=== PATIENT | female | born 1980 | race Caucasian/White ===

== ENCOUNTER 2017-03-30 05:33 | Outpatient (CLI) | payer OTHER ==
[~2017-03-30] VITALS: Ht 152.4 cm; Wt 63.5 kg
[~2017-03-30 05:33] MED LIST: ACHYD1T PO; BUTA1CAP45 PO; CPR500T PO; DCS100C PO; HYDR-1231 PO; HYDR-34 PO; HYDR1CAP2 PO; IBP800T PO; MECL-133; NAPR-243 PO; PREN1TAB64
[2017-03-30 09:14] VITALS: BP 126/70
== END 2017-03-30 09:20 | disposition home or self-care (01) ==
LOC: PREOP 05:33
PROVIDERS: ATTEND Orthopaedic Surgery
DX: Z01.818 Encounter for other preprocedural examination (principal); M94.261 Chondromalacia, right knee
CPT/HCPCS: 87081

== ENCOUNTER 2017-04-06 06:00 | Day surgery (SDC) | payer OTHER ==
--- NOTE | 2017-03-28 17:34 | HISTORY AND PHYSICAL ---
DATE OF SERVICE: 04/06/2017 This is for outpatient surgery on 04/06/17 for right knee arthroscopy. HISTORY: The patient is a 36-year-old female who previously underwent right ACL reconstruction with also known chondromalacia, who presents with complaints of increasing right knee pain. She reports catching and locking in her knee. She reports pain with stairs, with squatting and kneeling. She reports this has been progressive in nature and is interfering with her activities of daily living. She has tried, rest, activity modifications without relief. Due to functional impairment, the patient has elected to proceed with surgical intervention. REVIEW OF SYSTEMS: No chest pain, no shortness of breath, no dysuria. PAST MEDICAL HISTORY: Tension headache. PAST SURGICAL HISTORY: Appendectomy, cholecystectomy, hysterectomy. FAMILY HISTORY: Significant for cardiovascular disease, heart disease, hypertension. PRIMARY CARE PROVIDER: Dr. Garcia. MEDICATIONS: Denies. ALLERGIES: COMPAZINE. SOCIAL HISTORY: The patient denies alcohol or tobacco use. RADIOGRAPHS: Reveal no acute changes status post ACL reconstruction. PHYSICAL EXAMINATION: The patient is well-developed, well-nourished, in no acute distress. HEENT: Normocephalic, atraumatic. Pupils equal, round, and reactive to light. Oropharynx is clear. NECK: Supple. No lymphadenopathy. LUNGS: Clear to auscultation bilaterally. HEART: Regular rate and rhythm. ABDOMEN: Soft, nontender, nondistended. EXTREMITIES: The right knee demonstrates patellofemoral crepitus and pain with patellar loading. She has a moderate effusion. Range of motion is 0/0/135 with a negative Baldo, negative anterior drawer, negative pivot shift. The patient ambulates with an antalgic gait. IMPRESSION: Right knee chondromalacia of the patella, symptomatic. PLAN: Right knee arthroscopy with chondroplasty. The risks, benefits, options, ramifications and recovery were discussed at length with the patient. She understands and wishes to proceed. Job ID: [id number] DocumentID: [id number] Dictated Date: 03/28/2017 16:35:06 Med Spa Manager Date: 03/28/2017 17:34:05 Dictated By: RONALD LONG MD
[~2017-04-06] VITALS: Ht 152.4 cm; Wt 63.5 kg
[2017-04-06] MEDS ORDERED: ceFAZolin 1,000 MG (ANCEF) VIAL ONE (06:21)
[2017-04-06] MEDS ORDERED: NS (IVPB) 50 ML ONE (06:21)
[2017-04-06 06:30] VITALS: BP 118/77
[2017-04-06] MEDS: LACTATED RINGERS 1,000 ML IV PRN ×2 (06:40→08:04)
[2017-04-06] MEDS ORDERED: MIDAZOLAM 2 MG/2 ML (VERSED) VIAL ONE (06:57)
[2017-04-06] MEDS ORDERED: BUPIVACAINE 0.25% 30 ML (SENSORCAINE) VIAL ONE (07:12)
[2017-04-06] MEDS ORDERED: morphine PF (DURAMORPH) 10 MG/10 ML AMP ONE (07:12)
--- NOTE | 2017-04-06 07:18 | Progress Note-Pre Operative ---
Pre-Operative Progress Note H&P Reviewed The H&P was reviewed, patient examined and no changes noted. Date Seen by Provider: Apr 06, 2017 Time Seen by Provider: 07:11 Date H&P Reviewed: Apr 06, 2017 Time H&P Reviewed: 07:11 Pre-Operative Diagnosis: right knee chondromalacia RONALD LONG MD Apr 06, 2017 07:18
--- NOTE | 2017-04-06 07:19 | Progress Note-Post Operative ---
Post-Operative Progess Note Surgeon (s)/Wildlife Conservationist (s) Surgeon RONALD LONG MD Wildlife Conservationist: Star Bennett Pre-Operative Diagnosis right knee chondromalacia Post-Operative Diagnosis right knee chondromalacia of the patella, trochlea, medial femoral condyle, lateral tibial plateau Procedure & Operative Findings Date of Procedure 04/06/17 Procedure Performed/Findings right knee arthroscopic chondroplasty of the patella, trochlea, medial femoral condyle, and lateral tibial plateau Anesthesia Type GETA Estimated Blood Loss Estimated blood loss (mL): minimal Specimens/Packing Specimens Removed none Packing: none RONALD LONG MD Apr 06, 2017 07:19
[2017-04-06] MEDS ORDERED: ceFAZolin 1 GM/NS 50 ML IVPB IV ONE ×2 (07:30)
[2017-04-06] MEDS ORDERED: HYDROcodone/APAP 7.5 MG/325 MG (LORTAB, LORCET PLUS) TABLET PO PRN (07:30)
[2017-04-06] MEDS ORDERED: LACTATED RINGERS 1,000 ML IV ONE (07:54)
[2017-04-06] MEDS ORDERED: proPOfol 200 MG/20 ML (DIPRIVAN) VIAL IV ONE (07:54)
[2017-04-06] MEDS ORDERED: SEVOFLURANE (ULTANE) 15 ML INHAL SOLN ONE ×2 (07:54→07:55)
[2017-04-06] MEDS ORDERED: ONDANSETRON 4 MG/2 ML (SDV) Z0FRAN ONE ×2 (07:54→08:14)
[2017-04-06] MEDS ORDERED: LIDOCAINE PF 2% 5 ML (XYLOCAINE) VIAL ONE (07:54)
[2017-04-06] MEDS ORDERED: DEXAMETHASONE 10 MG/ML (DECADRON) 1 ML VIAL ONE (07:57)
[2017-04-06] MEDS ORDERED: morphine INJ 10 MG/ML 1ML (SYR OR VIAL) ONE (08:14)
[2017-04-06] MEDS: morphine INJ 10 MG/ML 1ML (SYR OR VIAL) IVP PRN ×2 (08:25→08:32)
[2017-04-06] MEDS ORDERED: ONDANSETRON 4 MG/2 ML (SDV) Z0FRAN IVP PRN (08:30)
[2017-04-06] MEDS ORDERED: PROMETHAZINE INJ 25 MG/ML (PHENERGAN) AMP IVP PRN (08:30)
--- NOTE | 2017-04-06 08:42 | OPERATIVE REPORT ---
DATE OF SERVICE: 04/06/2017 PREOPERATIVE DIAGNOSES: 1. Right knee chondromalacia of the patella. 2. 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 3. Right knee chondromalacia of the medial femoral condyle. POSTOPERATIVE DIAGNOSES: 1. Right knee chondromalacia of the patella. 2. 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 3. Right knee chondromalacia of the medial femoral condyle. 4. Right knee chondromalacia of the trochlea. PROCEDURES: 1. Right knee arthroscopic chondroplasty of the patella. 2. Right knee arthroscopic chondroplasty of the trochlea. 3. Right knee arthroscopic chondroplasty of the medial femoral condyle. 4. Right knee arthroscopic chondroplasty of the lateral tibial plateau. SURGEON: RONALD LONG MD MEN'S DESIGNER: PREM GUY, who assisted throughout the procedure and closed the incisions. ANESTHESIA: General endotracheal by Pura Siegel CRNA. TOURNIQUET TIME: Not applicable. ESTIMATED BLOOD LOSS: Minimal. DRAINS: None. COMPLICATIONS: None. POSTOPERATIVE PLAN: Routine arthroscopy protocol. The patient was transported to the recovery room awaken and in stable condition. STATE OF MEDICAL NECESSITY: The patient is a 36-year-old female who previously underwent right knee ACL reconstruction who has had known chondromalacia of her right knee. She complained of increasing pain, catching, locking and swelling, worse with squatting and kneeling. It was felt that she likely had chondromalacia of her patellofemoral compartment, as well as her medial and lateral compartments and due to functional impairment and mechanical symptoms and failure to improve with conservative measures, the patient elected to proceed with surgical intervention. Examination under anesthesia revealed range of motion 0/0/140 with a negative Baldo, negative anterior and posterior drawer, no varus or valgus laxity, negative pivot shift. Arthroscopic findings demonstrated Grade 2 chondral flaps over the central portion of the patella in an 8 x 8 area. The trochlea demonstrated Grade 4 chondral flaps essentially in a 3 x 10 area. The medial and lateral gutters were clear. The lateral compartment demonstrated Grade 2 chondral flap on the posterior aspect of the tibial plateau in a 5 x 5 area. The ACL graft and PCL were intact. The medial compartment demonstrated Grade 2 chondral flaps over the central weightbearing portion of the medial femoral condyle in a 10 x 10 area. PROCEDURE: After risks and benefits of the procedure were discussed and questions were answered and informed consent was obtained and placed in chart. The operative site was confirmed in the preoperative holding area and initialed by the surgeon. The patient was transported to the operating room and after adequate levels of general endotracheal anesthetic were obtained, a timeout was called, confirmed the operative site, and examination under anesthesia was performed with the above findings noted. The right lower extremity was then prepped and draped in the usual sterile fashion. The knee joint was injected with 60 mL of fluid and the standard inferolateral portal was placed for the arthroscope under direct visualization. An inferomedial portal was created and the menisci and cruciates were carefully probed with the above findings noted. The chondral flaps on the patella and trochlea were debrided with the shaver back to a stable edge. The scope was then redirected into the lateral compartment. The chondral flaps of the lateral tibial plateau were debrided with the shaver back to a stable edge. The scope was redirected into the medial compartment where the unstable chondral flaps of the medial femoral condyle were debrided with a shaver back to a stable edge. The knee was copiously irrigated. The port sites were closed with 3-0 Nylon in simple, interrupted fashion. The knee was injected with Duramorph. The port sites were infiltrated with plain Marcaine. A soft dressing was applied and the patient was transported to the recovery room awake and in stable condition. Job ID: [id number] DocumentID: [id number] Dictated Date: 04/06/2017 08:10:49 Signs And Displays Salesperson Date: 04/06/2017 08:41:31 Dictated By: RONALD LONG MD
[2017-04-06 09:00] VITALS: BP 128/78
[2017-04-06] MEDS ORDERED: HYDR-3816 PO (09:08)
[2017-04-06 09:30] VITALS: BP 124/80
[2017-04-06 10:00] VITALS: BP 127/50
--- NOTE | 2017-04-06 11:19 | Physical Therapy Progress Note ---
Therapy Progress Note Orders received for PT. Pt reports she has used crutches many times and has no questions or concerns. Provided pt with pics of her HEP and she verbalized she has done these exercises in the past as well. No PT needs at this time. [id number] visit only BRIDGET RAYMUNDO PT Apr 06, 2017 11:19
== END 2017-04-06 10:30 | disposition home or self-care (01) ==
LOC: SDC 06:00
PROVIDERS: ATTEND Orthopaedic Surgery
DX: M22.41 Chondromalacia patellae, right knee (principal)

== ENCOUNTER → 2017-10-14 | Outpatient (CLI) | payer OTHER ==
--- NOTE | 2017-10-14 16:52 | Diagnostic Imaging Report ---
INDICATION: Fall, landing on left arm on Tuesday. Persistent pain. Two views of the left forearm. FINDINGS: The radius and ulna are intact. Radiocarpal joint appears normal. The elbow appears normal. There is no joint effusion. IMPRESSION: Normal left forearm. Dictated by: Dictated on workstation # [id number]
== END ==
LOC: RAD 11:40
PROVIDERS: ATTEND Surgery
DX: M79.632 Pain in left forearm (principal); W19.XXXA Unspecified fall, initial encounter
CPT/HCPCS: 73090

== ENCOUNTER 2019-03-14 21:31 | Emergency (ER) | payer OTHER ==
[~2019-03-14] VITALS: Ht 152.4 cm; Wt 63.5 kg
[2019-03-14] MEDS ORDERED: LACTATED RINGERS 1,000 ML IV ONE (21:55)
[2019-03-14] MEDS ORDERED: KETOROLAC 30 MG/ML VIAL IVP ONE (22:00)
[2019-03-14] MEDS ORDERED: ONDANSETRON 4 MG/2 ML (SDV) Z0FRAN IVP ONE (22:00)
[2019-03-14] MEDS ORDERED: FAMOTIDINE 20MG/2ML IV (PEPCID) IVP ONE (22:00)
[2019-03-14] MEDS ORDERED: diphenhydrAMINE 50 MG/ML INJ (BENADRYL) IVP ONE (22:45)
[2019-03-14] MEDS ORDERED: ONDA4TAB11 SL (23:04)
--- NOTE | 2019-03-14 23:04 | ED Headache ---
General Chief Complaint: Head/Cervical Problems Stated Complaint: HEADACHE,N/V Nursing Triage Note: PT STATES THAT AT 2000 TONIGHT SHE BEGAN EXPERIENCING A MIGRAINE SIMILAR TO ONES SHE HAS HAD IN THE PAST. PT STATES SHE VOMITED ONCE, BEGAN EXPERIENCING ABDOMINAL PAIN AFTER THE VOMITING EPISODE, STATES PAIN IS IN THE FRONTAL PORTION OF HER HEAD, VERBALIZES NAUSEA AND LIGHT SENSITIVITY. Nursing Sepsis Screen: No Definite Risk Source: patient, old records Exam Limitations: no limitations History of Present Illness Date Seen by Provider: Mar 14, 2019 Time Seen by Provider: 21:55 Initial Comments This 38-year-old woman presents to the emergency room with complaint of migraine headache that started around 20:00. She has associated nausea and vomiting. She does have history of migraines and states this is typical of a migraine experience for her. She tried taking ibuprofen without benefit and vomited after taking ibuprofen. She has light and sound sensitivity. Allergies and Home Medications Allergies Coded Allergies: prochlorperazine (Verified Allergy, Unknown, 04/08/06) Home Medications Hydrocodone Bit/Acetaminophen 1 Each Tablet, 1-2 TAB PO Q4H PRN for PAIN Prescribed by: KELVIN ALEXANDER on 04/06/17 0908 Ondansetron 4 Mg Tab.rapdis, 4 MG SL Q4H PRN for NAUSEA/VOMITING-1ST LINE Prescribed by: BENJI ROSE on 03/14/19 2302 Patient Home Medication List Home Medication List Reviewed: Yes Review of Systems Review of Systems Constitutional: no symptoms reported Eyes: See HPI Ears, Nose, Mouth, Throat: see HPI Respiratory: no symptoms reported Cardiovascular: no symptoms reported Gastrointestinal: see HPI Genitourinary: no symptoms reported : No Musculoskeletal: no symptoms reported Skin: no symptoms reported Psychiatric/Neurological: See HPI Past Qputuhi-Ebqzml-Rgepzg Hx Patient Social History Alcohol Use: Denies Use Recreational Drug Use: No Smoking Status: Never a Smoker Recent Foreign Travel: No Contact w/Someone Who Travel: No Recent Infectious Disease Expo: No Recent Hopitalizations: No Immunizations Up To Date Tetanus Booster (TDap): Unknown PED Vaccines UTD: Yes Date of Influenza Vaccine: May 01, 2016 Seasonal Allergies Seasonal Allergies: No Past Medical History Surgeries: Yes (LT FOREARM SURGERY, RT KNEE SCOPE, ACL REPAIR) Appendectomy, Gallbladder, Hysterectomy, Oophorectomy, Orthopedic Respiratory: No Cardiac: No Neurological: Yes Headaches /Migraines : No Reproductive Disorders: No 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 0.0oz. 63.845635wh; 27.3 BMI Method:Stated General Appearance: WD/WN, no apparent distress HEENT: PERRL/EOMI, normal ENT inspection, pharynx normal Cardiovascular: regular rate, rhythm, no edema, no murmur Respiratory: lungs clear, normal breath sounds, no respiratory distress Gastrointestinal: normal bowel sounds, non tender, soft Extremities: normal inspection, no pedal edema Psychiatric: alert, oriented x 3 Crainal Nerves: normal hearing, normal speech Motor/Sensory: no motor deficit, no sensory deficit Skin: normal color, warm/dry Progress/Results/Core Measures Results/Orders My Orders Orders - BENJI PEACOCK MD Ed Iv/Invasive Line Start (03/14/19 21:55) Lactated Ringers (Lr 1000 Ml Iv Solution (03/14/19 21:55) Ondansetron Injection (Zofran Injectio (03/14/19 22:00) Ketorolac Injection (Toradol Injection) (03/14/19 22:00) Famotidine Injection (Pepcid Injection) (03/14/19 22:00) Diphenhydramine Injection (Benadryl Inje (03/14/19 22:45) Medications Given in ED Current Medications Medications Dose Ordered Sig/Joao Route Start Time Stop Time Status Last Admin Dose Admin Famotidine 20 mg ONCE ONCE IVP 03/14/19 22:00 03/14/19 22:01 DC 03/14/19 22:16 20 MG Ketorolac Tromethamine 15 mg ONCE ONCE IVP 03/14/19 22:00 03/14/19 22:01 DC 03/14/19 22:16 15 MG Lactated Ringer's 1,000 ml @ 0 mls/hr Q0M ONCE IV 03/14/19 21:55 03/14/19 21:56 DC 03/14/19 22:15 1,000 MLS/HR Ondansetron HCl 8 mg ONCE ONCE IVP 03/14/19 22:00 03/14/19 22:01 DC 03/14/19 22:16 8 MG Vital Signs/I&O 03/14/19 21:32 Temp 98.2 Pulse 65 Resp 22 B/P (MAP) 132/80 (97) Pulse Ox 98 O2 Delivery Room Air Blood Pressure Mean: 97 Progress Progress Note : Progress Note Patient was hydrated with IV LR and treated with Toradol and Zofran. She had some residual nausea. Phenergan cannot be used due to her Compazine allergy. Benadryl 12.5 mg was given for additional treatment. She then felt well enough to go home and rest. Departure Impression Primary Impression: Migraine headache Qualified Codes: G43.009 - Migraine without aura, not intractable, without status migrainosus Additional Impressions: Nausea and vomiting Qualified Codes: R11.2 - Nausea with vomiting, unspecified Epigastric pain Disposition: HOME, SELF-CARE Condition: Improved Departure-Patient Inst. Decision time for Depature: 23:02 Referrals: NO,LOCAL PHYSICIAN (PCP) Primary Care Physician Patient Instructions: Migraine Headache (DC) Add. Discharge Instructions: Drink plenty of clear liquids and gradually advance your diet with small quantities of bland food as tolerated. Rest in a quiet, calm, dark environment for the remainder of the evening. You may take ibuprofen up to 600 mg every 6 hours and/or Tylenol (acetaminophen) up to 1000 mg every 6 hours as needed for pain. Use Zofran (ondansetron) as prescribed for nausea and vomiting. Return to care if you have worsening symptoms despite these treatments. All discharge instructions reviewed with patient and/or family. Voiced understanding. Scripts Ondansetron (Ondansetron Odt) 4 Mg Tab.rapdis 4 MG SL Q4H PRN for NAUSEA/VOMITING-1ST LINE, #10 TAB Prov: BENJI PEACOCK MD 03/14/19 BENJI PEACOCK MD Mar 14, 2019 23:04
[2019-03-14 23:24] VITALS: BP 111/83
== END 2019-03-14 22:39 | disposition home or self-care (01) ==
LOC: EDUNIT# 21:31 → ER 21:33
DX: G43.909 Migraine, unspecified, not intractable, without status migrainosus (principal); R11.2 Nausea with vomiting, unspecified; R10.13 Epigastric pain; Z88.8 Allergy status to other drugs, medicaments and biological substances; Z90.49 Acquired absence of other specified parts of digestive tract; Z90.710 Acquired absence of both cervix and uterus

== ENCOUNTER 2020-02-18 05:34 | Outpatient (RCR) | payer OTHER ==
[~2020-02-18] VITALS: Ht 152 cm; Wt 65.0 kg
[~2020-02-18 05:34] MED LIST changes: +ONDA4TAB11 SL
== END 2020-02-18 11:03 | disposition home or self-care (01) ==
LOC: PREOP 05:34
PROVIDERS: ATTEND Orthopaedic Surgery
DX: Z01.812 Encounter for preprocedural laboratory examination (principal); M23.41 Loose body in knee, right knee; Z20.828 Contact with and (suspected) exposure to other viral communicable diseases
CPT/HCPCS: 87635

== ENCOUNTER 2020-02-20 07:08 | Day surgery (SDC) | payer OTHER ==
--- NOTE | 2020-02-11 09:06 | HISTORY AND PHYSICAL ---
DATE OF SERVICE: DATE OF ADMISSION: 02/20/2020 This will be for outpatient surgery for right knee arthroscopy on 02/20/2020. HISTORY OF PRESENT ILLNESS: The patient is a 39-year-old female with complaints of progressively worsening right knee pain. She previously underwent ACL reconstruction with subsequent arthroscopy. She reports progressive pain, swelling, catching and locking in her right knee. She reports pain with kneeling and squatting. 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 Unfortunately, it significantly after work. Due to functional impairment and failure to improve with conservative measures, the patient elected to proceed with surgical intervention. REVIEW OF SYSTEMS: No chest pain, no shortness of breath, no dysuria. PAST MEDICAL HISTORY: Tension headaches. PAST SURGICAL HISTORY: As above, appendectomy, cholecystectomy and hysterectomy. FAMILY HISTORY: Significant for cardiovascular disease, hypertension. PRIMARY CARE PROVIDER: Dr. Jean. MEDICATIONS: None. ALLERGIES: COMPAZINE. SOCIAL HISTORY: The patient denies alcohol, tobacco use. RADIOGRAPHS: Reveal a questionable loose body in the right knee with no other changes noted. PHYSICAL EXAMINATION: GENERAL: The patient is well-developed, well-nourished, in no acute distress. HEENT: Normocephalic, atraumatic. Pupils are equal, round and reactive to light. Oropharynx is clear. NECK: Supple, no lymphadenopathy. LUNGS: Clear to auscultation bilaterally. HEART: Regular rate and rhythm. ABDOMEN: Soft, nontender, nondistended. EXTREMITIES: Right knee demonstrates moderate effusion. She has patellofemoral crepitus and pain with patellar loading. She is tender along her anteromedial joint line. She has pain medially with Shelly's. No varus valgus laxity. Negative anterior and posterior drawer, negative pivot shift, negative Baldo. IMPRESSION: Right knee chondromalacia with possible loose body. PLAN: Right knee arthroscopy with chondroplasty, loose body excision. The risks, benefits, options, ramifications and recovery have been discussed at length with the patient. She understands and wishes to proceed. Job ID: [id number] DocumentID: [id number] Dictated Date: 02/11/2020 08:28:24 Ski Topper Date: 02/11/2020 09:06:01 Dictated By: RONALD LONG MD
[~2020-02-20] VITALS: Ht 152 cm; Wt 65.0 kg
[2020-02-20] VITALS (10 sets, daily range): BP systolic 94–128; BP diastolic 54–83
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
[2020-02-20] MEDS ORDERED: morphine PF (DURAMORPH) 10 MG/10 ML AMP ONE (07:22)
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
[2020-02-20] MEDS ORDERED: BUPIVACAINE 0.25% 30 ML (SENSORCAINE) VIAL ONE (07:23)
[2020-02-20] MEDS ORDERED: HYDROcodone/APAP 7.5 MG/325 MG (LORTAB, LORCET PLUS) TABLET PO PRN (07:30)
[2020-02-20] MEDS ORDERED: ceFAZolin INJECTION 1,000 MG in WATER (STERILE) FOR INJECTION 10 ML IV ONE (07:30)
--- NOTE | 2020-02-20 07:36 | Progress Note-Pre Operative ---
Pre-Operative Progress Note H&P Reviewed The H&P was reviewed, patient examined and no changes noted. Date Seen by Provider: Feb 20, 2020 Time Seen by Provider: 07:35 Date H&P Reviewed: Feb 20, 2020 Time H&P Reviewed: 07:35 Pre-Operative Diagnosis: right knee loose body and chondromalacis RONALD LONG MD Feb 20, 2020 07:36
--- NOTE | 2020-02-20 07:37 | Progress Note-Post Operative ---
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
[2020-02-20] MEDS: LACTATED RINGERS 1,000 ML IV PRN ×2 (08:03→10:16)
[2020-02-20] MEDS ORDERED: ONDANSETRON 4 MG/2 ML (SDV) Z0FRAN ONE (09:08)
[2020-02-20] MEDS ORDERED: fentaNYL INJECTION 100 MCG/2 ML AMP ONE (09:08)
[2020-02-20] MEDS ORDERED: proPOfol 200 MG/20 ML (DIPRIVAN) VIAL IV ONE (09:08)
[2020-02-20] MEDS ORDERED: DEXAMETHASONE 10 MG/ML (DECADRON) 1 ML VIAL ONE (09:08)
[2020-02-20] MEDS ORDERED: MIDAZOLAM 2 MG/2 ML (VERSED) VIAL ONE (09:08)
[2020-02-20] MEDS ORDERED: SEVOFLURANE (ULTANE) 15 ML INHAL SOLN ONE ×3 (09:08→09:42)
[2020-02-20] MEDS ORDERED: LIDOCAINE PF 2% 5 ML (XYLOCAINE) VIAL ONE (09:08)
[2020-02-20] MEDS ORDERED: morphine INJ 10 MG/ML 1ML (SYR OR VIAL) ONE (10:03)
[2020-02-20] MEDS ORDERED: fentaNYL INJECTION 100 MCG/2 ML AMP IVP ONE (10:15)
[2020-02-20] MEDS ORDERED: morphine INJ 10 MG/ML 1ML (SYR OR VIAL) IVP ONE (10:15)
[2020-02-20] MEDS ORDERED: MEPERIDINE (DEMEROL) INJ 50 MG/ML IVP ONE (10:15)
[2020-02-20] MEDS: ONDANSETRON 4 MG/2 ML (SDV) Z0FRAN IVP PRN ×2 (10:25→10:35)
--- NOTE | 2020-02-20 10:45 | NUR ---
TO AMB SURG FROM PAR PER CART. ALERT, RATES RIGHT KNEE PAIN 2. CADEN WRAPPED DSG D/I TO RIGHT KNEE, ELEVATED, ICE PACK ON. CMS CHECKS WNL TO RIGHT LEG. C/O MILD NAUSEA AND MID EPIGASTRIC PAIN.
[2020-02-20] MEDS ORDERED: FAMOTIDINE 20MG/2ML IV (PEPCID) IVP ONE (10:50)
[2020-02-20] MEDS ORDERED: FAMOTIDINE 20MG/2ML IV (PEPCID) ONE (10:52)
--- NOTE | 2020-02-20 10:58 | NUR ---
CONTACTED Ana María PRIETO CRNA REGARDING PT C/O NAUSEA AND MID EPIGASTRIC PAIN. ORDER RECEIVED AND PEPCID 20 MG GIVEN IV.
--- NOTE | 2020-02-20 11:08 | Anesthesia-General Post-Op ---
General Patient Condition Mental Status/LOC: Same as Preop Cardiovascular: Satisfactory Nausea/Vomiting: Absent Respiratory: Satisfactory Pain: Controlled Complications: Absent Post Op Complications Complications None Follow Up Care/Instructions Patient Instructions None needed. Anesthesia/Patient Condition Patient Condition Patient is doing well, no complaints, stable vital signs, no apparent adverse anesthesia problems. No complications reported per nursing. PREM HUSTON CRNA Feb 20, 2020 11:08
--- NOTE | 2020-02-20 11:30 | NUR ---
STATES MID EPIGASTRIC PAIN HAS EASED SOME AFTER BELCHING AND AFTER PEPCID WAS GIVEN. STATES "IT COMES AND GOES." NO CHANGE IN PAIN/CMS OR SURGICAL SITE ASSESSMENTS.
[2020-02-20] MEDS ORDERED: HYDR-4342 PO (11:41)
--- NOTE | 2020-02-20 12:28 | NUR ---
HAS BEEN UP FOR CRUTCH TRAINING WITH PHYSICAL THERAPY. TOLERATED WELL. STATES SHE HAS CRUTCHES AT HOME FOR USE AND IS COMFORTABLE WITH CRUTCHES FROM PREVIOUS SURGERIES. REPORTS MID EPIGASTRIC PAIN AND NAUSEA HAVE EASED. RIGHT KNEE PAIN RATED 1. NO CHANGE IN SITE OR CMS ASSESSMENTS.
--- NOTE | 2020-02-20 12:49 | Physical Therapy Ortho Eval ---
PT Orthopedic Evaluation Type of Surgery Knee Scope right side Prior Level of Function Current Living Status: Spouse Locomotion (Upon Admit): Independent Established Durable Medical Eq: Crutches Subjective Subjective Patient in bed pre tx, agrees to PT, has no complaints of pain, has had some nausea but is feeling better. Entry Into Home: Stairs With Railing Steps Into Home: 4 Steps Accessories: Railing Present Motor Control Motor Control: Motor Control WNL ROM right knee flexion 95 degrees, extension +3 degrees Transfer Transfers (B, C, W/C) (FIM): 4 Gait Gait Assistive Device: Crutches Right Lower Extremity: Right Weight Bearing Status RLE: Weight Bearing/Tolerated Summary/Comments Patient ambulated 60' with axillary crutches with CGA, and went up and down 1 step with CGA and cues for foot placement. Some unsteadiness and shakiness but no santo LOB. Patient has used crutches before. Treatment Rendered Treatment: Therapeutic Exercises, Gait Train, Step Train Exercise Instruction: Quad Sets, Heel Slides, Ankle Pumps Assessment/Goals Goal Time Frame: 1 Visit Understands HEP: Yes Safe Ambulation: Yes Plan Treatment Plan: Discharge PT/Family Agrees to Plan: Yes Time Time In: 1135 Time Out: 1147 Total Billed Treatment Time: 12 Billed Treatment Time 1 visit PAVEL Ordaz' AAYUSH MCCORMACK PT Feb 20, 2020 12:49
--- NOTE | 2020-02-20 14:27 | OPERATIVE REPORT ---
DATE OF SERVICE: 02/20/2020 PREOPERATIVE DIAGNOSES: 1. Right knee loose body. 2. Right knee chondromalacia of the trochlea. POSTOPERATIVE DIAGNOSES: 1. Right knee chondromalacia of the trochlea. 2. Right knee chondromalacia of the medial femoral condyle. PROCEDURES PERFORMED: 1. Right knee arthroscopic chondroplasty of the trochlea. 2. Right knee arthroscopic chondroplasty of the medial femoral condyle. SURGEON: Osmin Long MD. RATE SUPERVISOR: Star Bennett, who assisted throughout the procedure and closed the incisions. ANESTHESIA: General endotracheal by Star Brown CRNA. TOURNIQUET TIME: Not applicable. ESTIMATED BLOOD LOSS: Minimal. DRAINS: None. COMPLICATIONS: None. POSTOPERATIVE PLAN: Routine arthroscopy protocol. The patient was transferred to the recovery room awake and in stable condition. STATEMENT OF MEDICAL NECESSITY: The patient is a 39-year-old female, who previously underwent right knee ACL reconstruction and subsequent chondroplasty. She had increasing right knee pain, catching, locking and swelling. She has pain with patellar loading. It was felt that she likely had a loose body with associated chondromalacia and due to functional impairment and failure to improve with conservative measures, the patient elected to proceed with surgical intervention. Examination under anesthesia revealed range of motion of 0/0/135 with negative Baldo, negative anterior and posterior drawer. No varus or valgus laxity and negative pivot shift. ARTHROSCOPIC FINDINGS: The trochlea demonstrated grade II chondral flap centrally in a 10 x 10 area. The patella demonstrated grade II chondral softening with no unstable chondral flaps. The medial and lateral gutters were clear. The lateral compartment demonstrated no meniscal or chondral pathology. The ACL graft was intact. The PCL was intact. The medial compartment demonstrated grade II chondral flap near the intercondylar notch in a 10 x 10 area. No loose bodies were noted throughout the knee joint. DESCRIPTION OF PROCEDURE: After risks and benefits of procedure were discussed and questions were answered, an informed consent was signed and placed on chart, the operative site was confirmed in the preoperative holding area initialed by the surgeon. The patient was then transferred to the operating room and after adequate levels of general endotracheal anesthetic were obtained, a timeout was called, confirming the operative site. Examination under anesthesia was performed with the above findings noted. The right lower extremity was prepped and draped in the usual sterile fashion. The knee joint was injected with 60 mL of fluid and standard inferior lateral portals were placed with the arthroscope under direct visualization, inferior medial portal was created, the menisci and cruciates were carefully probed with the above findings noted. The unstable chondral flaps on the medial femoral condyle were debrided with shaver back to a stable edge. Scope was redirected into the patellofemoral joint space and the unstable chondral flaps in the trochlea were debrided with shaver back to a stable edge. This was carefully probed with no further tearing or instability noted. The knee was copiously irrigated. Port sites were closed with 4-0 nylon in simple interrupted fashion. The knee was injected with Duramorph. The port sites were infiltrated with plain Marcaine. A soft dressing was applied and the patient was transferred to the recovery room awake and in stable condition. Job ID: [id number] DocumentID: [id number] Dictated Date: 02/20/2020 10:00:00 Vault Mechanic Date: 02/20/2020 14:26:40 Dictated By: OSMIN LONG MD
== END 2020-02-20 12:28 | disposition home or self-care (01) ==
LOC: SDC 07:08
PROVIDERS: ATTEND Orthopaedic Surgery
DX: M94.261 Chondromalacia, right knee (principal); Z11.2 Encounter for screening for other bacterial diseases; Z88.8 Allergy status to other drugs, medicaments and biological substances
CPT/HCPCS: 87081

== ENCOUNTER 2021-06-22 15:00 | Emergency (ER) | payer OTHER ==
[~2021-06-22] VITALS: Ht 152 cm; Wt 69.0 kg
[~2021-06-22 15:00] MED LIST changes: +HYDR-3817 PO
--- NOTE | 2021-06-22 15:44 | ED General ---
General Chief Complaint: General Problems/Pain Stated Complaint: LEFT SHOULDER PAIN, NECK PAIN Nursing Triage Note: MID ABD PAIN THAT RADIATES UP THRU CHEST AND LEFT ARM THAT STARTED ON TUESDAY. Source of Information: Patient Exam Limitations: No Limitations History of Present Illness Date Seen by Provider: Jun 22, 2021 Time Seen by Provider: 15:29 Initial Comments This is a well-appearing 40-year-old female who presented to the ER with c omplaints of pain in her left chest that radiates into her left neck, back, arm. States pain is intermittent for past 4 days. Is sharp/stabbing at times and dull ache at other times. Denies any trauma or injury. States that she has been lifting laundry bags but does not feel that they are excessively heavy. Has been taking ibuprofen which does help with her symptoms. No fever, chills, cough, shortness of breath, nausea, vomiting, abdominal pain, dysuria.She reports no past medical history. Did have both of her Covid vaccines around September of this year. Allergies and Home Medications Allergies Coded Allergies: prochlorperazine (Verified Allergy, Severe, ANAPHYLAXIS, 02/14/20) Patient Home Medication List Home Medication List Reviewed: Yes Cyclobenzaprine HCl (Cyclobenzaprine HCl) 10 Mg Tablet, 10 MG PO Q8H PRN for PAIN-BREAKTHROUGH Prescribed by: JACQUELINE NATION on 06/22/211802 Hydrocodone/Acetaminophen (Hydrocodone-Acetamin 7.5-325) 1 Each Tablet, 1 EACH PO Q4H Prescribed by: REINA FIGUEROA on 02/20/20 1141 Naproxen (Naprosyn) 500 Mg Tablet, 500 MG PO BID Prescribed by: JACQUELINE NATION on 06/22/21 180 Review of Systems Review of Systems Constitutional: no symptoms reported EENTM: see HPI Respiratory: no symptoms reported Cardiovascular: see HPI Gastrointestinal: no symptoms reported Musculoskeletal: see HPI Skin: no symptoms reported Psychiatric/Neurological: No Symptoms Reported Hematologic/Lymphatic: No Symptoms Reported Past Uasiudl-Nmlxvq-Tyhqdr Hx Patient Social History Smokeless Tobacco Frequency: Never a User Use of E-Cig and/or Vaping Dick: Never a User Alcohol Use?: No Immunizations Up To Date Tetanus Booster (TDap): Unknown PED Vaccines UTD: Yes Second COVID19 Vaccination Jam: 02/21 COVID19 Vaccine Canvas Goods Supervisor: PHIMARIAELENA Seasonal Allergies Seasonal Allergies: No Past Medical History Surgeries: Yes (LT FOREARM SURGERY, RT KNEE SCOPE, ACL REPAIR) Appendectomy, Gallbladder, Hysterectomy, Oophorectomy, Orthopedic Respiratory: No Currently Using CPAP: No Currently Using BIPAP: No Cardiac: No Neurological: Yes Headaches /Migraines Reproductive Disorders: No 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 0.0oz. 63.092122us; 66.00 BMI Method:Stated General Appearance: No Apparent Distress, WD/WN Eyes: Bilateral Eye Normal Inspection, Bilateral Eye PERRL, Bilateral Eye EOMI HEENT: PERRL/EOMI, Normal ENT Inspection, Pharynx Normal, Moist Mucous Membranes Neck: Full Range of Motion, Normal Inspection, Supple; No Limited Range of Motion, No Lymphadenopathy (L); Tender Lateral (left lateral tenderness ) Respiratory: Lungs Clear, Normal Breath Sounds, No Accessory Muscle Use, No Respiratory Distress, Other (Left chest wall tenderness, mild tenderness in righ t chest wall. Left neck and scapular tenderness. ) Cardiovascular: Regular Rate, Rhythm, No Murmur, Normal Peripheral Pulses Gastrointestinal: Normal Bowel Sounds, Non Tender, Soft Back: Muscle Spasm (left scapular tenderness ); No Vertebral Tenderness Extremity: Normal Capillary Refill, Normal Inspection, Normal Range of Motion Neurologic/Psychiatric: Alert, Oriented x3, No Motor/Sensory Deficits, Normal Mood/Affect Skin: Normal Color, Warm/Dry Progress/Results/Core Measures Suspected Sepsis SIRS Temperature: Pulse: 92 Respiratory Rate: 16 Laboratory Tests 06/22/21 15:46: White Blood Count 6.3 Blood Pressure 165 /88 Mean: 113 Laboratory Tests 06/22/21 15:46: Creatinine 0.82, INR Comment 0.9, Platelet Count 256, Total Bilirubin 0.4 Results/Orders Lab Results Laboratory Tests Test 06/22/21 15:46 Range/Units White Blood Count 6.3 4.3-11.0 10^3/uL Red Blood Count 4.55 3.80-5.11 10^6/uL Hemoglobin 13.8 11.5-16.0 g/dL Hematocrit 40 35-52 % Mean Corpuscular Volume 88 80-99 fL Mean Corpuscular Hemoglobin 30 25-34 pg Mean Corpuscular Hemoglobin Concent 35 32-36 g/dL Red Cell Distribution Width 11.9 10.0-14.5 % Platelet Count 256 130-400 10^3/uL Mean Platelet Volume 8.8 L 9.0-12.2 fL Immature Granulocyte % (Auto) 1 % Neutrophils (%) (Auto) 64 42-75 % Lymphocytes (%) (Auto) 27 12-44 % Monocytes (%) (Auto) 6 0-12 % Eosinophils (%) (Auto) 2 0-10 % Basophils (%) (Auto) 1 0-10 % Neutrophils # (Auto) 4.0 1.8-7.8 X 10^3 Lymphocytes # (Auto) 1.7 1.0-4.0 X 10^3 Monocytes # (Auto) 0.4 0.0-1.0 X 10^3 Eosinophils # (Auto) 0.1 0.0-0.3 10^3/uL Basophils # (Auto) 0.0 0.0-0.1 10^3/uL Immature Granulocyte # (Auto) 0.0 0.0-0.1 10^3/uL Prothrombin Time 13.0 12.2-14.7 SEC INR Comment 0.9 0.8-1.4 Activated Partial Thromboplast Time 35 24-35 SEC D-Dimer 0.54 H 0.00-0.49 UG/ML Sodium Level 139 135-145 MMOL/L Potassium Level 3.8 3.6-5.0 MMOL/L Chloride Level 103 98-107 MMOL/L Carbon Dioxide Level 25 21-32 MMOL/L Anion Gap 11 5-14 MMOL/L Blood Urea Nitrogen 14 7-18 MG/DL Creatinine 0.82 0.60-1.30 MG/DL Estimat Glomerular Filtration Rate 76 BUN/Creatinine Ratio 17 Glucose Level 103 70-105 MG/DL Calcium Level 9.3 8.5-10.1 MG/DL Corrected Calcium 9.1 8.5-10.1 MG/DL Magnesium Level 2.0 1.6-2.4 MG/DL Total Bilirubin 0.4 0.1-1.0 MG/DL Aspartate Amino Transf (AST/SGOT) 18 5-34 U/L Alanine Aminotransferase (ALT/SGPT) 13 0-55 U/L Alkaline Phosphatase 65 40-136 U/L Myoglobin 26.9 10.0-92.0 NG/ML Troponin I < 0.028 <0.028 NG/ML Total Protein 8.0 6.4-8.2 GM/DL Albumin 4.3 3.2-4.5 GM/DL My Orders Orders - JACQUELINE NATION APRN Ketorolac Injection (Toradol Injection) (06/22/21 15:45) Orphenadrine Inj (Ed Only) (Norflex Inje (06/22/21 15:45) Cbc With Automated Diff (06/22/21 15:37) Magnesium (06/22/21 15:37) Chest 1 View, Ap/Pa Only (06/22/21 15:37) Ekg Tracing (06/22/21 15:37) Comprehensive Metabolic Panel (06/22/21 15:37) Myoglobin Serum (06/22/21 15:37) Protime With Inr (06/22/21 15:37) Partial Thromboplastin Time (06/22/21 15:37) Monitor-Rhythm Ecg Trace Only (06/22/21 15:37) Ed Iv/Invasive Line Start (06/22/21 15:37) Fibrin Degradation Products (06/22/21 15:37) Troponin I (06/22/21 15:46) Fentanyl Inj (Sublimaze Injection) (06/22/21 16:45) Ct Angio Chest W (06/22/21 16:35) Fentanyl Inj (Sublimaze Injection) (06/22/21 16:40) Iohexol Injection (Omnipaque 350 Mg/Ml 1 (06/22/21 17:15) Received Contrast (Hold Metformin- Contr (06/22/21 17:15) Ns (Ivpb) (Sodium Chloride 0.9% Ivpb Bag (06/22/21 17:15) Medications Given in ED Current Medications Medications Dose Ordered Sig/Joao Route Start Time Stop Time Status Last Admin Dose Admin Fentanyl Citrate 50 mcg ONCE ONCE IVP 06/22/21 16:45 06/22/21 16:48 DC 06/22/21 16:42 50 MCG Iohexol 100 ml ONCE ONCE IV 06/22/21 17:15 06/22/21 17:16 DC 06/22/21 17:39 64 ML Ketorolac Tromethamine 30 mg ONCE ONCE IVP 06/22/21 15:45 06/22/21 15:46 DC 06/22/21 15:54 30 MG Orphenadrine Citrate 30 mg ONCE ONCE IVP 06/22/21 15:45 06/22/21 15:46 DC 06/22/21 15:54 30 MG Sodium Chloride 100 ml ONCE ONCE IV 06/22/21 17:15 06/22/21 17:16 DC 06/22/21 17:39 80 ML Vital Signs/I&O 06/22/21 15:18 Temp 36.9 Pulse 92 Resp 16 B/P (MAP) 165/88 (113) Pulse Ox 98 O2 Delivery Room Air Capillary Refill : Less Than 3 Seconds Blood Pressure Mean: 113 Progress Note : Progress Note Patient examined and in no acute distress. She does not have any coronary risk factors such as hypertension, diabetes, hyperlipidemia. Her pain is reproduc ible. Symptoms are likely consistent with a muscle strain/injury. However will rule out any cardiac or pulmonary/infectious etiology. Labs, EKG reviewed. All of her labs are within normal limits except slight elevation in her D-dimer which is just above normal at 0.54. She reports no relief from Toradol and Norflex. Her chest x-ray was negative for any pulmonary infiltrates. Discussed risks/benefits of a CT angio to further evaluate for possible pulmonary embolism. Patient states that she would like to have CT angio done at this time. Orders placed for Fentanyl 50mcg IVP. CT chest angio negative for PE. This likely represents a strain of her muscle. Discussed discharge POC with patient and she is agreeable with plan. ECG Initial ECG Impression Date: Jun 22, 2021 Initial ECG Impression Time: 15:28 Initial ECG Rate: 73 Initial ECG Rhythm: Normal Sinus Initial ECG Intervals: Normal Initial ECG Impression: Normal Initial ECG Comparisson: No Previous ECG Available Diagnostic Imaging Diagonstic Imaging: Xray Plain Films/CT/US/NM/MRI: chest Comments [facility] [place], [place] NAME: CHEN CRESPO [facility] REC#: [id number] PT STATUS: REG ER : 1980 PHYSICIAN: JACQUELINE NATION COOK CANDY ADMIT DATE: 06/22/21/ER Signed Date of Exam:06/22/21 CHEST 1 VIEW, AP/PA ONLY Indication: Chest pain Upright portable chest shows normal heart size and vascularity. The lungs are clear. There is no effusion or pneumothorax. There is no bony abnormality. IMPRESSION: Normal chest. Dictated by: Dictated on workstation # [id number] Dict: 06/22/218 Trans: 06/22/211557 JENIFER [id number] Interpreted by: MARINO LYNN MD Electronically signed by: MARINO LYNN MD 06/22/211557 Reviewed: Reviewed by Fl Diagonstic Imaging: CT Plain Films/CT/US/NM/MRI: chest Comments [facility]. [place], [place] NAME: CHEN CRESPO [facility] REC#: [id number] PT STATUS: REG ER : 1980 PHYSICIAN: JACQUELINE NATION COOK CANDY ADMIT DATE: 06/22/21/ER Signed Date of Exam:06/22/21 CT ANGIO CHEST W PROCEDURE: CT angiography of the chest with contrast. TECHNIQUE: Multiple contiguous axial images were obtained through the chest after uneventful bolus administration of intravenous contrast. 3D reconstructed CTA MIP acquisitions were also performed. Auto Exposure Controls were utilized during the CT exam to meet ALARA standards for radiation dose reduction. INDICATION: Chest pain radiating into the left arm. No relevant comparison. FINDINGS: There are no intraluminal pulmonary arterial filling defects. There were no findings of pulmonary arterial embolus. The thoracic aorta patent and nonaneurysmal and nonacute. There is no pleural or pericardial effusion. No focal consolidation. No evidence of edema or pneumonia. No lung mass, no lymphadenopathy, no pneumothorax, no acute or suspect chest wall pathology and the visualized upper abdomen appeared nonacute. IMPRESSION: Negative for PE or other acute abnormalities. Dictated by: Dictated on workstation # [id number] Dict: 06/22/219 Trans: 06/22/21 1748 [facility] [id number] Interpreted by: JAN MARIO Electronically signed by: JAN MARIO 06/22/21 1748 Reviewed: Reviewed by Me Departure Impression Primary Impression: Injury of muscle of thorax Disposition: 01 HOME, SELF-CARE Condition: Improved Departure-Patient Inst. Decision time for Depature: 17:57 Referrals: BELL CHOUDHURY MD (PCP/Family) Primary Care Physician Patient Instructions: Muscle Strain ED Add. Discharge Instructions: Plan: 1. Rest. May use ice/heat 20 minutes at a time for pain. 2. May take Tylenol as needed for pain per package. 3. Take Naproxen twice a day with food. 4. May take muscle relaxer as needed for pain/tenderness. 5. No heavy lifting, bending, twisting, pulling. 6. Follow up with your primary care provider if your symptoms persist. 7. Return for any new, concerning, or worsening symptoms. All discharge instructions reviewed with patient and/or family. Voiced understanding. Scripts Cyclobenzaprine HCl (Cyclobenzaprine HCl) 10 Mg Tablet 10 MG PO Q8H PRN for PAIN-BREAKTHROUGH, #10 TAB [address] while taking Prov: JACQUELINE NATION COOK CANDY 06/22/21 Naproxen (Naprosyn) 500 Mg Tablet 500 MG PO BID for 5 Days, #10 TAB 0 Refills Prov: JACQUELINE NATION COOK CANDY 06/22/21 Work/School Note: Work Release Form Date Seen in the Emergency Department: Jun 22, 2021 Return to Work: Jun 25, 2021 Restrictions: No Restrictions JACQUELINE NATION COOK CANDY Jun 22, 2021 15:44
[2021-06-22] MEDS ORDERED: ORPHENADRINE 60 MG/2 ML (NORFLEX) AMP (ED ONLY) IVP ONE (15:45)
[2021-06-22] MEDS ORDERED: KETOROLAC 30 MG/ML VIAL IVP ONE (15:45)
[2021-06-22 15:53] LABS: BASOPHILS % (AUTO) 1 % (0-10); EOSINOPHILS # (AUTO) 0.1 10^3/uL (0.0-0.3); EOSINOPHILS % (AUTO) 2 % (0-10); HEMATOCRIT 40 % (35-52); HEMOGLOBIN 13.8 g/dL (11.5-16.0); LYMPHOCYTES # (AUTO) 1.7 X 10^3 (1.0-4.0); LYMPHOCYTES % (AUTO) 27 % (12-44); MEAN CORPUSCULAR HEMOGLOBIN 30 pg (25-34); MEAN CORPUSCULAR HGB CONC 35 g/dL (32-36); MEAN CORPUSCULAR VOLUME 88 fL (80-99); MEAN PLATELET VOLUME 8.8 fL (9.0-12.2); MONOCYTES # (AUTO) 0.4 X 10^3 (0.0-1.0); MONOCYTES % (AUTO) 6 % (0-12); NEUTROPHILS % (AUTO) 64 % (42-75); PLATELET COUNT 256 10^3/uL (130-400); WHITE BLOOD COUNT 6.3 10^3/uL (4.3-11.0)
--- NOTE | 2021-06-22 16:00 | Diagnostic Imaging Report ---
Indication: Chest pain Upright portable chest shows normal heart size and vascularity. The lungs are clear. There is no effusion or pneumothorax. There is no bony abnormality. IMPRESSION: Normal chest. Dictated by: Dictated on workstation # [id number]
[2021-06-22 16:01] LABS: ALBUMIN 4.3 GM/DL (3.2-4.5); CHLORIDE 103 MMOL/L (98-107); POTASSIUM 3.8 MMOL/L (3.6-5.0); SODIUM 139 MMOL/L (135-145)
[2021-06-22 16:02] LABS: CALCIUM 9.3 MG/DL (8.5-10.1)
[2021-06-22 16:03] LABS: GLUCOSE 103 MG/DL (70-105)
[2021-06-22 16:04] LABS: CARBON DIOXIDE 25 MMOL/L (21-32)
[2021-06-22 16:05] LABS: BILIRUBIN,TOTAL 0.4 MG/DL (0.1-1.0)
[2021-06-22 16:07] LABS: ALKALINE PHOSPHATASE 65 U/L (40-136); CREATININE SERUM 0.82 MG/DL (0.60-1.30); GFR ESTIMATED 76
[2021-06-22 16:08] LABS: BUN/CREATININE RATIO 17
[2021-06-22 16:10] LABS: ALANINE AMINOTRANSFERASE 13 U/L (0-55)
[2021-06-22 16:12] LABS: INR 0.9 (0.8-1.4)
[2021-06-22] MEDS ORDERED: fentaNYL INJ 100 MCG/2 ML AMP ONE (16:40)
[2021-06-22] MEDS ORDERED: fentaNYL INJ 100 MCG/2 ML AMP IVP ONE (16:45)
[2021-06-22] MEDS ORDERED: IOHEXOL 350 MG/ML 100 ML (OMNIPAQUE 350) VIAL IV ONE (17:15)
[2021-06-22] MEDS ORDERED: NS 100 ML (IVPB) BAG IV ONE (17:15)
[2021-06-22] MEDS ORDERED: HOLD METFORMIN - RECEIVED CONTRAST 20 ML VIAL IV SCH (17:15)
--- NOTE | 2021-06-22 17:46 | Diagnostic Imaging Report ---
PROCEDURE: CT angiography of the chest with contrast. TECHNIQUE: Multiple contiguous axial images were obtained through the chest after uneventful bolus administration of intravenous contrast. 3D reconstructed CTA MIP acquisitions were also performed. Auto Exposure Controls were utilized during the CT exam to meet ALARA standards for radiation dose reduction. INDICATION: Chest pain radiating into the left arm. No relevant comparison. FINDINGS: There are no intraluminal pulmonary arterial filling defects. There were no findings of pulmonary arterial embolus. The thoracic aorta patent and nonaneurysmal and nonacute. There is no pleural or pericardial effusion. No focal consolidation. No evidence of edema or pneumonia. No lung mass, no lymphadenopathy, no pneumothorax, no acute or suspect chest wall pathology and the visualized upper abdomen appeared nonacute. IMPRESSION: Negative for PE or other acute abnormalities. Dictated by: Dictated on workstation # [id number]
[2021-06-22] MEDS ORDERED: NAPR-1071 PO (18:03)
[2021-06-22] MEDS ORDERED: CYCL10TA9 PO (18:03)
[2021-06-22 18:11] VITALS: BP 107/90
== END 2021-06-22 18:09 | disposition home or self-care (01) ==
LOC: EDUNIT# 15:00 → ER 15:03
DX: S29.009A Unspecified injury of muscle and tendon of unspecified wall of thorax, initial encounter (principal); X58.XXXA Exposure to other specified factors, initial encounter
CPT/HCPCS: 36415; 71045; 71275; 80053; 83735; 83874; 84484; 85025; 85379; 85610; 85730; 93005; 93041

== ENCOUNTER 2023-01-12 05:44 | Outpatient (CLI) | payer OTHER ==
[~2023-01-12] VITALS: Ht 154.9 cm; Wt 70.0 kg
[~2023-01-12 05:44] MED LIST changes: +CYCL10TA25 PO; +NAPR-1071 PO
== END 2023-01-12 08:51 | disposition home or self-care (01) ==
LOC: PREOP 05:44
PROVIDERS: ATTEND Orthopaedic Surgery
DX: Z01.818 Encounter for other preprocedural examination (principal)

== ENCOUNTER 2023-01-19 08:51 | Day surgery (SDC) | payer OTHER ==
[2023-01-19] VITALS (12 sets, daily range): BP systolic 91–139; BP diastolic 49–79
[~2023-01-19] VITALS: Ht 154.9 cm; Wt 70.0 kg
[~2023-01-19 08:51] MED LIST changes: +HYDROcodone/APAP 7.5 MG/325 MG (LORTAB, LORCET PLUS) TABLET PO PRN
--- NOTE | 2023-01-19 09:05 | HISTORY AND PHYSICAL ---
DATE OF SERVICE: 01/19/2023 REASONS: Right knee arthroscopy with chondroplasty. HISTORY: The patient is a 42-year-old female who reports catching and locking as well as anterior knee pain. She reports pain with kneeling and squatting as well as twisting. She previously underwent knee arthroscopy following an ACL reconstruction and did well. Due to functional impairment and failure to improve with conservative measures, the patient elected to proceed with surgical intervention. REVIEW OF SYSTEMS: No chest pain, no shortness of breath. No dysuria. PAST MEDICAL HISTORY: Tension headaches. PAST SURGICAL HISTORY: As above, appendectomy, cholecystectomy and hysterectomy. FAMILY HISTORY: Cardiovascular disease, hypertension. PRIMARY CARE PROVIDER: Em. MEDICATIONS: None. ALLERGIES: COMPAZINE. SOCIAL HISTORY: The patient denies alcohol and tobacco use. PHYSICAL EXAMINATION: GENERAL: The patient is well-developed, well-nourished, in no acute distress. HEENT: Normocephalic, atraumatic. Pupils are equal, round and reactive to light. Oropharynx is clear. NECK: Supple, with no lymphadenopathy. LUNGS: Clear to auscultation bilaterally. HEART: Regular rate and rhythm. ABDOMEN: Soft, nontender, nondistended. EXTREMITIES: The right knee demonstrates patellofemoral crepitus and pain with patellar loading. She has moderate effusion noted. She has pain medially with Shelly's. She is ligamentously stable in all planes of range of motion 0/2/130. IMPRESSION: Right knee chondromalacia with possible medial meniscus tear. PLAN: Right knee arthroscopy with chondroplasty, partial meniscectomy. The risks, benefits, options, ramifications and recovery were discussed at length with the patient. She understands and wishes to proceed. Job ID: [id number] DocumentID: [id number] Dictated Date: 01/19/2023 07:40:55 [employer] Date: 01/19/2023 09:03:00 Dictated By: RONALD LONG MD
[2023-01-19] MEDS ORDERED: ceFAZolin INJECTION 1,000 MG in NS (IVPB) 50 ML IV ONE (09:15)
[2023-01-19] MEDS ORDERED: LACTATED RINGERS 1,000 ML IV PRN (09:15)
--- NOTE | 2023-01-19 09:22 | Progress Note-Pre Operative ---
Pre-Operative Progress Note Date of Available H&P: Jan 19, 2023 Date H&P Reviewed: Jan 19, 2023 Time H&P Reviewed: 09:22 Changes from last HP none Pre-Operative Diagnosis: right knee chondromalacia of the patella RONALD LONG MD Jan 19, 2023 09:22
--- NOTE | 2023-01-19 09:23 | Progress Note-Post Operative ---
Post-Operative Progess Note Surgeon (s)/Do All Operator (s) Surgeon RONALD LONG MD Do All Operator: Star Bennett Pre-Operative Diagnosis right knee chondromalacia of the patella Post-Operative Diagnosis right knee chondromalacia of the patella, trochlea and lateral tibial plateau Procedure & Operative Findings Date of Procedure 01/19/23 Procedure Performed/Findings right knee arthroscopic chondroplasty of the patella, trochlea and lateral tibial plateau Anesthesia Type GETA Estimated Blood Loss Estimated blood loss (mL): minimal Specimens/Packing Specimens Removed none Packing: none RONALD LONG MD Jan 19, 2023 09:23
[2023-01-19] MEDS ORDERED: LIDOCAINE PF 2% 5 ML (XYLOCAINE) VIAL ONE (09:55)
[2023-01-19] MEDS ORDERED: MIDAZOLAM 2 MG/2 ML (VERSED) VIAL ONE (09:55)
[2023-01-19] MEDS ORDERED: fentaNYL INJ 100 MCG/2 ML AMP ONE (09:55)
[2023-01-19] MEDS ORDERED: SEVOFLURANE (ULTANE) 15 ML INHAL SOLN ONE ×2 (09:55→11:29)
[2023-01-19] MEDS ORDERED: proPOfol 200 MG/20 ML (DIPRIVAN) VIAL IV ONE (09:55)
[2023-01-19] MEDS ORDERED: ONDANSETRON 4 MG/2 ML (SDV) Z0FRAN ONE (09:55)
[2023-01-19] MEDS ORDERED: BUPIVACAINE 0.25% 30 ML (SENSORCAINE) VIAL ONE (10:54)
[2023-01-19] MEDS ORDERED: morphine PF (DURAMORPH) 10 MG/10 ML AMP ONE (10:54)
[2023-01-19] MEDS ORDERED: KETOROLAC 30 MG/ML VIAL ONE (11:25)
[2023-01-19] MEDS ORDERED: ONDANSETRON 4 MG/2 ML (SDV) Z0FRAN IVP PRN (11:45)
[2023-01-19] MEDS ORDERED: HYDROmorphone 2 MG/ML VIAL (DILAUDID) IV ONE (11:45)
--- NOTE | 2023-01-19 14:27 | Physical Therapy Ortho Eval ---
PT Orthopedic Evaluation Type of Surgery Knee Scope Prior Level of Function Current Living Status: Children Locomotion (Upon Admit): Independent Established Durable Medical Eq: Crutches Subjective Subjective Patient lying in bed upon PT arrival with family in the room. Patient rates pain at 2/10 currently. Agreeable to treatment. Entry Into Home: Stairs Without Railing Steps Into Home: 3 Steps Inside Home: 0 Steps Accessories: No Railing ROM ROM: WFL, except focal deficit Strength Strength: Gen Weak,No Focal Deficit Transfer SCALE: Activities may be completed with or without assistive devices. 9-Qkujbrsfng-uztjytd completes the activity by him/herself with no assistance from a helper. 5-Set-up or Clean-up Assistance-helper sets up or cleans up; patient completes activity. [place] assists only prior to or following the activity. 4-Supervision or Touching Assistance-helper provides verbal cues and/or touching/steadying and/or contact guard assistance as patient completes activity. Assistance may be provided throughout the activity or intermittently. 3-Partial/Moderate Assistance-helper does LESS THAN HALF the effort. [place] lifts, holds or supports trunk or limbs, but provides less than half the effort. 2-Substantial/Maximal Assistance-helper does MORE THAN HALF the effort. [place] lifts or holds trunk or limbs and provides more than half the effort. 7-Bmuuglivv-swxleq does ALL the effort. Patient does none of the effort to complete the activity. Or, the assistance of 2 or more helpers is required for the patient to complete the activity. If activity was not attempted, code reason: 7-Patient Refused. 9-Not Applicable-not attempted and the patient did not perform the activity before the current illness, exacerbation or injury. 10-Not Attempted due to Environmental Limitations-(lack of equipment, weather restraints, etc.). 88-Not Attempted due to Medical Conditions or Safety Concerns. Transfers (B, C, W/C) (QC): 6 Gait Gait Assistive Device: Crutches Right Lower Extremity: Right Weight Bearing Status RLE: Weight Bearing/Tolerated Left Lower Extremity: Left Weight Bearing Status LLE: Full Weight Bearing Gait (QC): 4 Distance: 30' Stairs #of Steps: 3 Walking Assistive Device: Crutches Treatment Rendered Treatment: Therapeutic Exercises, Gait Train, Step Train Assessment/Goals Goal Time Frame: 1 Visit Understands HEP: Yes Safe Ambulation: Yes Plan Treatment Plan: Discharge Time Time In: 1330 Time Out: 1340 Total Billed Treatment Time: 10 Billed Treatment Time Visit, YOBANI ROBLERO PT Jan 19, 2023 14:27
--- NOTE | 2023-01-19 19:04 | OPERATIVE REPORT ---
DATE OF SERVICE: 01/19/2023 PREOPERATIVE DIAGNOSES: 1. Right knee chondromalacia patella. 2. Right knee chondromalacia of the trochlea. POSTOPERATIVE DIAGNOSES: 1. Right knee chondromalacia patella. 2. Right knee chondromalacia of the trochlea. 3. 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 PROCEDURE: 1. Right knee arthroscopic chondroplasty of the patella. 2. Right knee arthroscopic chondroplasty of trochlea. 3. Right knee arthroscopic chondroplasty of lateral tibial plateau. SURGEON: Osmin Long MD TAR BOILER: Star Bennett, who assisted throughout the procedure and closed the incisions. ANESTHESIA: General endotracheal by Armand Serra CRNA. TOURNIQUET TIME: Not applicable. ESTIMATED BLOOD LOSS: Minimal. DRAINS: None. COMPLICATIONS: None. POSTOPERATIVE PLAN: Routine arthroscopy protocol. The patient was transferred to recovery room awake and in stable condition. STATEMENT OF MEDICAL NECESSITY: The patient is a 42-year-old female who had previously undergone an ACL reconstruction of the right knee with subsequent chondroplasty due to mechanical symptoms developed who had recently developed increasing catching and locking in her knee. She tried rest, activity modifications, anti-inflammatories without relief. Due to functional impairment and failure to improve with conservative measures, the patient elected to proceed with surgical intervention. Examination under anesthesia revealed range of motion 0/0/135 with negative Baldo, negative anterior and posterior drawer. No varus or valgus laxity and negative pivot shift. ARTHROSCOPIC FINDINGS: The patella demonstrated grade II chondral flaps inferiorly in a 10 x 10 area. Trochlea demonstrated grade III chondral flap centrally in a 15 x 10 area. The medial and lateral gutters were clear. The ACL graft and PCL were intact. The medial compartment demonstrated no meniscal or chondral pathology. Lateral compartment demonstrated a chondral flap of the central portion of the tibial plateau in an 8 x 10 area. DESCRIPTION OF PROCEDURE: After risks and benefits of the procedure were discussed and questions were answered and informed consent signed and placed on chart, the operative site was confirmed in the preoperative holding initialed by surgeon. The patient was then transferred to the operating room and after adequate levels of general endotracheal anesthetic were obtained, timeout was called, confirming the operative site. Examination under anesthesia was performed with the above findings noted. The right lower extremity was prepped and draped in the usual sterile fashion. Knee joint was injected with 60 mL fluid and standard inferolateral portal was placed for the arthroscope and direct visualization, inferior medial portal was created. The menisci cruciates carefully probed with the above findings noted. The unstable chondral flaps on the patella and trochlea were debrided with a shaver back to a stable edge. Scope was then redirected in the lateral compartment and unstable chondral flaps on the lateral tibial plateau were debrided with a shaver back to a stable edge. The knee was copiously irrigated. Port sites were closed with 4-0 nylon in simple interrupted fashion. Knee was injected with Duramorph. Port sites were infiltrated with plain Marcaine. A soft dressing was applied. The patient was transferred to the recovery room awake and in stable condition. Job ID: [id number] DocumentID: [id number] Dictated Date: 01/19/2023 11:43:05 Environmental Sampling Technician Date: 01/19/2023 19:02:00 Dictated By: OSMIN LONG MD
== END 2023-01-19 13:50 | disposition home or self-care (01) ==
LOC: SDC 08:51
PROVIDERS: ATTEND Orthopaedic Surgery
DX: M22.41 Chondromalacia patellae, right knee (principal)
CPT/HCPCS: 87081